=== PATIENT | female | born 1995 | race Hispanic/Latino ===

== ENCOUNTER 2018-10-06 13:30 | Outpatient (CLI) | payer BC ==
--- NOTE | 2018-10-06 16:11 | ULT ---
OB ULTRASOUND: Date: 10/06/18 HISTORY: Size and dates. FINDINGS: A single, live intrauterine gestation is seen, with measurements corresponding to an estimated gestat ional age of 22 weeks/0 days and SOL at 02/09/19. The estimated weight measures 470 gm, or 1 lb . 1 oz. measurements are as follows: BPD: 5.21 cm, 21 weeks/6 days HC: 19.56 cm, 21 weeks/6 days AC: 16.53 cm, 21 weeks/4 days FL: 3.94 cm, 22 weeks/5 days heart rate measures 165 beats/minute. JOSE measures 12.2 cm. Placenta is anteriorly located with out evidence of placenta previa. Three vessel cord, cord insertion, kidneys, bladder, stomach, four chamber heart, lateral ventr icles, cerebellum, spine, lips/nose, upper/lower extremities are visualized. No definite anomal ies are seen. IMPRESSION: Single, live intrauterine of 22 weeks estimated gestational age and SOL at 02/09/19. POS: PILY
== END 2018-10-06 13:31 | disposition home or self-care (01) ==
LOC: BICULT 13:30
PROVIDERS: ATTEND Family Medicine
DX: Z34.82 Encounter for supervision of other normal pregnancy, second trimester (principal); Z3A.22 22 weeks gestation of pregnancy
CPT/HCPCS: 76805

== ENCOUNTER 2018-11-13 10:57 | Day surgery (SDC) | payer BC ==
[2018-11-13] MEDS ORDERED: Morphine 4 MG/ML VIAL SLOW IVP PRN (11:22)
[2018-11-13] MEDS ORDERED: Ondansetron ODT 4 MG TAB PO PRN (11:24)
[2018-11-13] MEDS ORDERED: Lactated Ringer's 1,000 ML IV SCH (11:30)
[2018-11-13] MEDS ORDERED: Ondansetron PF 4 MG/2 ML Vial IVP SCH (11:30)
[2018-11-13] MEDS ORDERED: Acetaminophen 650 MG in Premix Bag 1 BAG IVPB SCH (11:30)
[2018-11-13] MEDS ORDERED: Acetaminophen 500 MG TAB PO SCH (11:30)
[2018-11-13 11:36] VITALS: BMI 39.0
--- NOTE | 2018-11-13 11:41 | PDOC.LDHP ---
Labor and Delivery H&P Chief complaint: other (Rt flank pain) HPI: 23 yo @ 27.6 presents w/ 24 hr h/o severe flank pain with radiation into rt groin and associated nausea and vomiting. Pt reports pain is persistent and waxes and wanes but never goes away completely. She reports pos movement, denies vaginal discharge, LOF, contractions, vaginal bleeding. She denies fever and denies hematuria, dysuria and foul smelling urine. ROS: Gen: Denies fever chills HEENT: Denies headache CV: Denies CP Respiratory: Denies SOB, cough Abd: Reports NV, denies diarrhea and constipation MSK: reports flank pain with radiation into groin : See HPI Current gestational age (weeks): 27 (6) Dating criteria: last menstrual period Grav: 2 Para: 1 Current complications: none Abnormal US findings: No Current medications: pre-sin vitamins Previous surgical history: none Allergies/Adverse Reactions: Allergies Allergy/AdvReac Type Severity Reaction Status Date / Time No Known Allergies Allergy Verified 11/13/18 11:30 Social history: none - Physical Exam Abnormal vital signs: Tachycardia, Normotensive, Afebrile General: resting, other (Moderately uncomfortable) Heart: RRR Lungs: CTAB Abdomen: gravid Extremeties: no edema FHT: category 1 (145 baseline w/ moderate variability) [place] contractions every: None - OB Labs Blood type: unknown RH: unknown Antibody Screen: unknown HIV: unknown RPR: unknown HEPSAg: unknown 1 hour GCT: unknown GBS: unknown - Assessment Renal colic: - Plan -: 1) Renal colic: concerning for nephrolithiasis - will start peripheral SL and IVH w/ LR 1L bolus - tylenol and morphine for pain control - renal US to assess for stone/hydro vs other etiology, check UA and consider urine culture - given afebrile and no urinary symptoms low likelihood of pyelo - zofran prn for NV - cat 1 strip, cont EFM Addendum - Attending - Attending Attestation Date/Time: 11/13/18 [id number] I personally evaluated the patient and discussed the management with Dr. Ferrera. I agree with the History, Examination, Assessment and Plan documented above. No e/o pyelonephritis or kidney stone. Feeling better after IV hydration and tylenol. D/c home with precautions.
[2018-11-13 12:21] LABS: Bilirubin Negative (Negative); Blood, Urine Negative (Negative); Clarity CLEAR (Clear); Glucose, Urine (Dipstick) Negative (Negative); Leukocyte Negative (Negative); Nitrite Negative (Negative); Protein, Urine (Dipstick) Negative (Neg-Trace); Specific Gravity, Urine 1.009 (1.002-1.036); Urobilinogen 0.2 mg/dL (0.2-1.0); pH, Urine 6.5 (5.0-9.0)
[2018-11-13 12:24] LABS: Bacteria/HPF None Seen HPF (None Seen); Hyaline Casts/LPF 4-6 HYALINE CAST LPF (0-3 Hyaline); Pathc Cast-AUWi Flag 1.74 (0-2.49); RBC/HPF None Seen HPF (0-3); Squamous Epithelial 0-3 HPF (0-3); WBC/HPF 0-3 HPF (0-3)
--- NOTE | 2018-11-13 14:22 | ULT ---
BILATERAL RENAL SONOGRAM: Date: 11/13/18 HISTORY: Right flank pain. FINDINGS: Right kidney is 13.5 cm with minimal distention of the collecting structures. Left kidney is 13.1 cm length with a normal appearance. No hydronephrosis. Incidental note of echogenic foci within the depe ndent portion of the gallbladder lumen. Urinary bladder is incompletely distended. IMPRESSION: 1. Mild right hydronephrosis of . 2. Cholelithiasis. POS: PILY
--- NOTE | 2018-11-13 14:25 | PDOC.EVN ---
Event Note - Event Note Event Note: Pt reports significant imprvement in pain with PO tylenol alone. US shows mild right hydronephrosis and normal left kidney. UA shows ketones only and no blood , leuks or nitrites. US comments on incidental cholelithiasis without gallbladder wall thickening or pericholecystic stranding. Will plan to DC to home with instructions to return if new or worsening symptoms or development of fever. DC diagnosis presumptive nephrolithiasis, pt counseled on return precautions and will take flomax if return of renal colic until passage of stone or resolution of symptoms. Counseled on importance of oral hydration.
== END 2018-11-13 14:41 | disposition home health service (06) ==
LOC: L&D/OP 10:57
PROVIDERS: ATTEND Family Medicine
DX: O26.832 Pregnancy related renal disease, second trimester (principal); N23 Unspecified renal colic; Z3A.27 27 weeks gestation of pregnancy; Z79.899 Other long term (current) drug therapy
CPT/HCPCS: 51701; 76770; 81001; 96360; 96361; 96375; 99283; A4353; J2405

== ENCOUNTER 2019-02-02 23:00 | Inpatient (IN) | payer BC ==
[2019-02-04] MEDS ORDERED: Butorphanol Tartrate 1 MG/ML VIAL SLOW IVP PRN (05:43)
[2019-02-04] MEDS ORDERED: NS w/ Oxytocin 10 units 500 ML IV SCH (05:43)
[2019-02-04] MEDS ORDERED: Ibuprofen 800 MG TAB PO PRN (05:43)
[2019-02-04] MEDS ORDERED: Diphenoxylate HCl/Atropine Tablet PO PRN (05:43)
[2019-02-04] MEDS ORDERED: Ondansetron PF 4 MG/2 ML Vial IVP PRN ×3 (05:43→21:29)
[2019-02-04] MEDS ORDERED: Carboprost 250 MCG/ML AMP IM PRN (05:43)
[2019-02-04] MEDS ORDERED: HYDROcodone/Acetaminophen 5/325 mg Tablet PO PRN (05:43)
[2019-02-04] MEDS ORDERED: Misoprostol 200 MCG TAB PR PRN (05:43)
[2019-02-04] MEDS ORDERED: Lidocaine 1% (PF) 30 ML VIAL SC PRN (05:43)
[2019-02-04] MEDS ORDERED: NS / Oxytocin 40 units/1000ml 1,000 ML IV PRN (05:43)
[2019-02-04] MEDS ORDERED: Methylergonovine 0.2 MG/ML VIAL IM PRN (05:43)
[2019-02-04 05:50] VITALS: BMI 43.0
[2019-02-04] MEDS: Lactated Ringer's 1,000 ML IV SCH ×3 (06:18→16:16)
[2019-02-04 06:57] LABS: Hemoglobin 11.2 g/dL (12.0-16.0); Mean Corpuscular HGB CONC 35.1 g/dL (32.0-36.0); Mean Corpuscular Hemoglobin 29.5 pg (27.0-31.0); Mean Corpuscular Volume 84.1 fL (78.0-98.0); Mean Platelet Volume 9.3 fL (7.4-10.4); Platelet Count 236 thou/uL (130-400); RBC Distribution Width 13.6 % (11.5-14.5); Red Blood Cell (RBC) Count 3.78 mill/uL (4.20-5.40); White Blood Cell (WBC) Count 9.6 thou/uL (4.8-10.8)
[2019-02-04] MEDS: NS w/ Oxytocin 10 units 500 ML IV SCH ×2 (07:12→19:49)
[2019-02-04 07:38] LABS: Syphilis Antibody Nonreactive (Nonreactive); Syphilis Antibody Index 0.04 S/CO (<1.00 Non-Reactive)
[2019-02-04 07:38] LABS: HBSAg Index 0.23 S/CO (0-0.99); Hep B Surf Ag Non-Reactive S/CO (NonReactive)
[2019-02-04] MEDS ORDERED: Fentanyl 4 mcg/Bup 0.1% Cadd 100 ML ONE ×2 (09:13→18:36)
[2019-02-04] MEDS ORDERED: Dexamethasone 20 MG/5 ML VIAL ONE (11:08)
[2019-02-04] MEDS ORDERED: PHENYLEPHRINE-NS 100 MCG/ML 10 ML SYRINGE ONE ×2 (11:08→20:43)
[2019-02-04] MEDS ORDERED: Metoclopramide HCl 10 MG/2 ML VIAL ONE ×2 (11:08→21:53)
[2019-02-04] MEDS ORDERED: Ondansetron PF 4 MG/2 ML Vial ONE ×2 (11:08→20:43)
[2019-02-04] MEDS ORDERED: Ketorolac Tromethamine 30 MG/ML VIAL ONE ×2 (11:08→20:44)
[2019-02-04] MEDS ORDERED: PROPOFOL 200 MG/20 ML VIAL ONE (11:08)
[2019-02-04] MEDS ORDERED: Bupivacaine PF 0.5% 30 ML VIAL ONE (11:11)
[2019-02-04] MEDS ORDERED: Lidocaine 2% MPF 10 ML AMP (For Epidural Use) ONE (11:11)
[2019-02-04] MEDS ORDERED: Bupivacaine/Epinephrine 0.25% 30 ML VIAL ONE (11:11)
[2019-02-04] MEDS ORDERED: Bupivacaine HCl 0.5%/Epinephrine 1:200,000/PF 30 ml Vial ONE (11:11)
[2019-02-04] MEDS ORDERED: diphenhydrAMINE 50 MG/ML VIAL IVP PRN ×2 (13:39→21:29)
[2019-02-04] MEDS ORDERED: Lactated Ringer's 500 ML IV PRN (13:39)
[2019-02-04] MEDS ORDERED: ePHEDrine/0.9% NaCl/PF SYRINGE 50 mg/10 ml SLOW IVP PRN (13:39)
[2019-02-04] MEDS ORDERED: Promethazine HCl 25 MG/ML VIAL IM PRN ×2 (13:39→21:29)
[2019-02-04] MEDS ORDERED: Acetaminophen 325 MG TAB PO PRN (13:39)
[2019-02-04] MEDS ORDERED: Naloxone HCl 0.4 mg/ml Vial IVP PRN ×4 (13:39→21:29)
[2019-02-04] MEDS ORDERED: Fentanyl 4 mcg/Bupivacaine 0.1% Cassette 100 ML EPIDURAL SCH (13:45)
[2019-02-04] MEDS ORDERED: Communication Order-Pharmacy FS SCH ×2 (13:45→21:30)
[2019-02-04] MEDS ORDERED: MORPHINE 5 MG/10 ML PF VIAL ONE (20:43)
[2019-02-04] MEDS ORDERED: Fentanyl 100 MCG/2 ML VIAL ONE (20:43)
[2019-02-04] MEDS ORDERED: Oxytocin 10 UNITS/ML VIAL ONE ×3 (20:44→21:29)
[2019-02-04] MEDS ORDERED: ePHEDrine/0.9% NaCl/PF SYRINGE 50 mg/10 ml ONE (20:44)
[2019-02-04] MEDS ORDERED: Carboprost 250 MCG/ML AMP ONE ×2 (21:05→21:18)
[2019-02-04] MEDS ORDERED: Methylergonovine 0.2 MG/ML VIAL ONE (21:05)
[2019-02-04] MEDS ORDERED: Ketamine 50 MG/ML (10ML VIAL) ONE (21:19)
[2019-02-04] MEDS ORDERED: Midazolam HCl 2 mg/2 ml Vial ONE (21:19)
[2019-02-04] MEDS ORDERED: PROPOFOL 20 ML ONE (21:22)
[2019-02-04] MEDS ORDERED: Meperidine HCl/PF 25 MG/ML VIAL SLOW IVP PRN (21:29)
[2019-02-04] MEDS ORDERED: Ketorolac Tromethamine 30 MG/ML VIAL IVP PRN (21:29)
[2019-02-04] MEDS ORDERED: Naloxone HCl 0.4 mg/ml Vial IV PRN (21:29)
[2019-02-04] MEDS ORDERED: Ondansetron HCl/PF 4 MG/2 ML Vial IVP PRN (21:29)
[2019-02-04] MEDS ORDERED: L&D-Morphine 4 MG/ML VIAL SLOW IVP PRN (21:29)
[2019-02-04] MEDS ORDERED: HYDROmorphone 2 MG/ML VIAL SLOW IVP PRN (21:29)
[2019-02-04] MEDS ORDERED: Promethazine HCl 25 MG SUPP PR PRN (21:29)
[2019-02-04] MEDS ORDERED: Ketorolac Tromethamine 30 MG/ML VIAL IVP SCH (21:30)
[2019-02-04] MEDS ORDERED: Dexamethasone 4 mg/ml Vial ONE (21:47)
[2019-02-04] MEDS ORDERED: Promethazine HCl 25 MG/ML VIAL ONE (22:26)
[2019-02-04] MEDS: Misoprostol 100 MCG TAB PO SCH (23:11)
[2019-02-05] MEDS ORDERED: Lactated Ringer's 1,000 ML IV SCH (01:00)
[2019-02-05] MEDS ORDERED: NS / Oxytocin 40 units/1000ml 1,000 ML IV SCH (01:00)
[2019-02-05] MEDS ORDERED: Simethicone Chewable 80 MG TAB PO PRN (01:00)
[2019-02-05] MEDS ORDERED: Bisacodyl 10 MG SUPP PR PRN (01:00)
[2019-02-05] MEDS ORDERED: diphenhydrAMINE 25 MG CAP PO PRN (01:00)
[2019-02-05] MEDS ORDERED: Promethazine HCl 25 MG/ML VIAL IM PRN (01:00)
[2019-02-05] MEDS ORDERED: Lanolin Ointment 7 GM TUBE TOP PRN (01:00)
[2019-02-05] MEDS ORDERED: Metoclopramide HCl 10 MG/2 ML VIAL IVP PRN (01:00)
[2019-02-05] MEDS ORDERED: Ondansetron PF 4 MG/2 ML Vial IVP PRN (01:00)
--- NOTE | 2019-02-05 02:59 | OP ---
DATE OF PROCEDURE: 02/04/2019 PREOPERATIVE DIAGNOSES: 1. A 39 plus week . 2. Morbid obesity. 3. Arrest of dilation. POSTOPERATIVE DIAGNOSES: 1. A 39 plus week . 2. Morbid obesity. 3. Arrest of dilation. 4. Persistent occiput posterior presentation. PROCEDURE PERFORMED: Primary low cervical transverse . OPTICAL DESIGN ENGINEER: Dr. Saucedo. DESCRIPTION OF PROCEDURE: After informed consent was obtained from the patient , she was taken to the operating room, where epidural anesthesia was readministered. She was then prepped and draped in the usual sterile fashion. A Pfannenstiel incision was created with a #10 scalpel blade and carried down to the fascia. Skin bleeders were cauterized with a Bovie. The fascia was nicked in the midline and the fascial incision was extended transversely with Alejo scissors. The superior fascial segments were grasped with Kochers and elevated and the underlying rectus muscles were dissected away, first bluntly and then sharply. This was repeated with an inferior fascial segment. The rectus muscles were divided in the midline bluntly. The peritoneum was entered bluntly. A large Riky O retractor was placed. The uterus was entered in a low transverse fashion with a clean #10 scalpel blade. After the initial score, the hysterotomy bled briskly despite pressure and suction and the myometrium was incised deliberately, but rapidly. Clear amniotic fluid was encountered. The infant was found to be in ROP presentation. vertex was delivered onto the operative field, followed by the remainder of the . No nuchal cord was encountered. The cord was clamped x2, and a vigorous infant was handed to the staff in attendance. The cord blood was obtained. The placenta was manually extracted. The uterus was exteriorized and the freed of clots and debris. It was atonic despite oxytocin infusion, thus Methergine and Hemabate x1 each were given with improvement in uterine tone. The uterus was repaired with running locking suture of 0-Vicryl in a single full-thickness layer followed by a second imbricating layer , also with 0-Vicryl. A single [id number] suture was placed on the right corner for hemostasis, which was observed. 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 Seprafilm was applied to the repaired uterine incisions. The abdomen was copiously irrigated with saline. The uterus was returned to the abdomen. Hemostasis was again observed. The peritoneum was closed with a running suture of 3-0 Vicryl. The fascia was repaired with a running suture of 3-0 PDS. Interrupted sutures of 3- 0 Vicryl were placed in the subdermal layer to reapproximate the skin, which was closed with skin isabela. Sponge and instrument counts were correct x4. She tolerated the procedure well and suffered no significant acute complications. She was taken to Recovery in stable condition, the infant to nursery in a stable condition. FINDINGS: Viable male . Apgars of 8 and 9 at one and five minutes respectively. 8 pounds 1 ounce. COMPLICATIONS: Mild uterine atony, which responded to Methergine x1, Hemabate x1 and oxytocin infusion. QBL: 693 mL. Job ID: [id number] MTDD
[2019-02-05] MEDS: Ketorolac Tromethamine 30 MG/ML VIAL IVP SCH ×3 (04:32→17:46)
[2019-02-05 06:50] LABS: Hemoglobin 10.3 g/dL (12.0-16.0); Mean Corpuscular HGB CONC 33.7 g/dL (32.0-36.0); Mean Corpuscular Hemoglobin 28.8 pg (27.0-31.0); Mean Corpuscular Volume 85.5 fL (78.0-98.0); Mean Platelet Volume 8.8 fL (7.4-10.4); Platelet Count 223 thou/uL (130-400); RBC Distribution Width 13.4 % (11.5-14.5); Red Blood Cell (RBC) Count 3.58 mill/uL (4.20-5.40); White Blood Cell (WBC) Count 15.7 thou/uL (4.8-10.8)
[2019-02-05] MEDS: Docusate Calcium (SURFAK) 240 MG CAP PO SCH ×2 (08:26→21:51)
[2019-02-05] MEDS: Prenatal Vitamin 1 TAB PO SCH (08:26)
[2019-02-05] MEDS: Ferrous Sulfate 325 MG TAB PO SCH ×2 (08:28→17:46)
[2019-02-05] MEDS ORDERED: Meperidine HCl/PF 25 MG/ML VIAL IM PRN (09:30)
[2019-02-05] MEDS ORDERED: HYDROcodone/Acetaminophen 5/325 mg Tablet PO PRN (09:30)
[2019-02-05] MEDS: HYDROcodone/Acetaminophen 5/325 mg Tablet PO PRN ×2 (14:06→20:24)
[2019-02-05] MEDS: Ibuprofen 800 MG TAB PO SCH (21:51)
[2019-02-06] MEDS: Ibuprofen 800 MG TAB PO SCH ×3 (06:16→21:49)
[2019-02-06] MEDS: Ferrous Sulfate 325 MG TAB PO SCH ×2 (08:29→18:24)
[2019-02-06] MEDS: HYDROcodone/Acetaminophen 5/325 mg Tablet PO PRN ×3 (08:49→17:47)
[2019-02-06] MEDS: Prenatal Vitamin 1 TAB PO SCH (08:50)
[2019-02-06] MEDS: Docusate Calcium (SURFAK) 240 MG CAP PO SCH ×2 (08:50→21:48)
[2019-02-07] MEDS: Ibuprofen 800 MG TAB PO SCH ×2 (06:29→14:34)
[2019-02-07] MEDS: Ferrous Sulfate 325 MG TAB PO SCH (07:49)
[2019-02-07 08:07] VITALS: BP 97/60; TEMP 98.1
[2019-02-07] MEDS: Docusate Calcium (SURFAK) 240 MG CAP PO SCH (09:29)
[2019-02-07] MEDS: Prenatal Vitamin 1 TAB PO SCH (09:29)
== END 2019-02-07 16:05 | disposition home or self-care (01) | DRG 788 ==
LOC: L&D 02-04 05:07 → 3SW 02-05 01:06
PROVIDERS: ADMIT Family Medicine; ATTEND Family Medicine
PROC: 10D00Z1 Extraction of Products of Conception, Low, Open Approach (ICD-10-PCS; principal; 2019-02-04)
PROC: 10907ZC Drainage of Amniotic Fluid, Therapeutic from Products of Conception, Via Natural or Artificial Opening (ICD-10-PCS; 2019-02-04)
PROC: 3E0P7VZ Introduction of Hormone into Female Reproductive, Via Natural or Artificial Opening (ICD-10-PCS; 2019-02-04)
PROC: 3E033VJ Introduction of Other Hormone into Peripheral Vein, Percutaneous Approach (ICD-10-PCS; 2019-02-04)
DX: O77.0 Labor and delivery complicated by meconium in amniotic fluid (principal); O99.214 Obesity complicating childbirth; Z37.0 Single live birth; Z3A.39 39 weeks gestation of pregnancy; O64.0XX0 Obstructed labor due to incomplete rotation of fetal head, not applicable or unspecified; E66.01 Morbid (severe) obesity due to excess calories; O62.0 Primary inadequate contractions; O61.0 Failed medical induction of labor; O62.2 Other uterine inertia
CPT/HCPCS: 36415; 51702; 85027; 86780; 86850; 86900; 86901; 87340; J0670; J0690; J1100; J1885; J2001; J2210; J2250; J2270; J2405; J2550; J2590; J2704; J2765; J3010; J3490; S0020

== ENCOUNTER 2019-02-18 01:16 | Emergency (ER) | payer BC ==
[2019-02-18] MEDS ORDERED: Ondansetron PF 4 MG/2 ML Vial ONE (01:46)
[2019-02-18] MEDS ORDERED: Morphine 4 MG/ML VIAL ONE (01:46)
[2019-02-18 01:48] LABS: #Basophils 0.1 thou/uL (0.0-0.2); #Eosinphils 0.2 thou/uL (0.0-0.7); #Lymphocytes 2.2 thou/uL (1.20-3.40); #Monocytes 0.6 thou/uL (0.11-0.59); #Neutrophils 4.8 thou/uL (1.40-6.50); %Basophils 0.9 % (0.0-1.0); %Eosinophils 2.7 % (0.0-10.0); %Lymphocytes 28.4 % (21.0-51.0); %Monocytes 7.2 % (0.0-10.0); %Neutrophils 60.9 % (42.0-75.0); Hemoglobin 11.8 g/dL (12.0-16.0); Mean Corpuscular HGB CONC 33.5 g/dL (32.0-36.0); Mean Corpuscular Hemoglobin 28.6 pg (27.0-31.0); Mean Corpuscular Volume 85.5 fL (78.0-98.0); Mean Platelet Volume 7.7 fL (7.4-10.4); Platelet Count 348 thou/uL (130-400); RBC Distribution Width 12.6 % (11.5-14.5); Red Blood Cell (RBC) Count 4.14 mill/uL (4.20-5.40); White Blood Cell (WBC) Count 7.8 thou/uL (4.8-10.8)
[2019-02-18 02:05] LABS: Bilirubin Negative (Negative); Blood, Urine Small (Negative); Clarity CLEAR (Clear); Glucose, Urine (Dipstick) Negative (Negative); Leukocyte Small (Negative); Nitrite Negative (Negative); Protein, Urine (Dipstick) Negative (Neg-Trace); Specific Gravity, Urine 1.014 (1.002-1.036); Urobilinogen 0.2 mg/dL (0.2-1.0); pH, Urine 6.5 (5.0-9.0)
[2019-02-18 02:08] LABS: Bacteria/HPF None Seen HPF (None Seen); Hyaline Casts/LPF 0-3 HYALINE CAST LPF (0-3 Hyaline); RBC/HPF 0-3 HPF (0-3); Squamous Epithelial 0-3 HPF (0-3)
[2019-02-18 02:10] LABS: ALT (SGPT) 17 U/L (8-55); AST (SGOT) 16 U/L (5-34); Albumin 4.5 g/dL (3.5-5.0); Alkaline Phosphatase 112 U/L (40-150); Anion Gap 13 mmol/L (10-20); BUN (Urea Nitrogen) 15 mg/dL (7.0-18.7); Bilirubin, Total 0.5 mg/dL (0.2-1.2); Calc. Creatinine Clearance 0 mL/min (70-130); Calcium 10.4 mg/dL (7.8-10.44); Carbon Dioxide 26 mmol/L (22-29); Chloride 103 mmol/L (98-107); Estimated GFR-MDRD Greater than 90; Globulin 3.6 g/dL (2.4-3.5); Glucose 101 mg/dL (70-105); Potassium 3.8 mmol/L (3.5-5.1); Protein, Total 8.1 g/dL (6.0-8.3); Sodium 138 mmol/L (136-145)
--- NOTE | 2019-02-18 07:08 | ULT ---
RIGHT UPPER QUADRANT ULTRASOUND: Date: 02/18/19 INDICATION: Intermittent right upper quadrant pain. FINDINGS: There is evidence of cholelithiasis. Gallbladder wall is normal in thickness. Common duct measures 5 mm. Streeter's sign reported as positive. No focal hepatic lesion. Incidental note of cyst formation wi thin the right kidney, approximately 1.3 cm in diameter. IMPRESSION: Moderate distention of the gallbladder with cholelithiasis. There is a positive Streeter's sign. Correl ate for clinical evidence of cholecystitis. POS: HECTOR
== END 2019-02-18 03:19 | disposition home or self-care (01) ==
LOC: ERS 01:16
DX: K80.50 Calculus of bile duct without cholangitis or cholecystitis without obstruction (principal)
CPT/HCPCS: 76705; 80053; 81003; 81015; 85025; 96361; 96374; 96375; J2270; J2405

== ENCOUNTER 2020-06-21 14:20 | Outpatient (CLI) | payer BC ==
--- NOTE | 2020-06-21 18:02 | ULT ---
OB ULTRASOUND: 06/21/20 INDICATIONS: Assess anatomy. FINDINGS: There is a single viable intrauterine . Gestational age by ultrasound is 23 weeks, 5 days. BIOMETRY: BPD: 23 week, 5 day HC: 23 week, 2 day AC: 23 week, 6 day FL: 23 week, 6 day EFW: 617 grams, 23 week, 4 day. Amniotic fluid: Adequate. JOSE recorded at 17.2 cm. heart rate: 163 beats per minute. Placenta: Anterior. Presentation: Vertex. Cervical length: 3.9 cm. ANATOMY: The intracranial contents, four chamber heart, stomach, kidneys, cord insertion, bladder, lips, nose, extremities and three vessel cord were all imaged and appear unremarkable. The spine was partially i vincent but is limited due to position. Material adnexa regions were not evaluated. IMPRESSION: 23 week, 5 day gestation by ultrasound measurement. No abnormality identified. 1. POS: AGW
== END 2020-06-21 14:21 | disposition home or self-care (01) ==
LOC: BICULT 14:20
PROVIDERS: ATTEND Family Medicine
DX: O09.892 Supervision of other high risk pregnancies, second trimester (principal); Z3A.23 23 weeks gestation of pregnancy
CPT/HCPCS: 76805

== ENCOUNTER 2020-10-05 10:18 | Outpatient (CLI) | payer BC ==
[2020-10-05 20:23] LABS: SARS-CoV-2 PCR by NAA Not Detected (NotDetected)
== END 2020-10-05 10:19 | disposition home or self-care (01) ==
LOC: LABBT 10:18
PROVIDERS: ATTEND Family Medicine
DX: Z01.812 Encounter for preprocedural laboratory examination (principal); Z20.822 Contact with and (suspected) exposure to COVID-19
CPT/HCPCS: 87635; U0003; U0005

== ENCOUNTER 2020-10-08 04:48 | Inpatient (IN) | payer BC ==
[2020-10-08] MEDS ORDERED: Lactated Ringer's 1,000 ML IV SCH (05:03)
[2020-10-08] MEDS ORDERED: Promethazine HCl 25 MG/ML VIAL IM PRN ×4 (05:03→10:36)
[2020-10-08] MEDS ORDERED: hydrALAZINE 20 MG/ML VIAL SLOW IVP PRN ×2 (05:03→10:36)
[2020-10-08] MEDS ORDERED: Ondansetron PF 4 MG/2 ML Vial IVP PRN ×3 (05:03→10:36)
[2020-10-08] MEDS ORDERED: Famotidine/PF 20 mg/2ml Vial SLOW IVP PRN (05:03)
[2020-10-08] MEDS ORDERED: Bicitra 30 ML UDCUP PO PRN (05:03)
[2020-10-08] MEDS ORDERED: CEFAZOLIN 2 GM in Premix Bag 1 BAG IVPB SCH (05:15)
[2020-10-08 05:21] VITALS: BMI 40.4
[2020-10-08 05:53] LABS: Hemoglobin 9.9 g/dL (12.0-16.0); Mean Corpuscular HGB CONC 32.6 g/dL (32.0-36.0); Mean Corpuscular Hemoglobin 24.6 pg (27.0-31.0); Mean Corpuscular Volume 75.4 fL (78.0-98.0); Mean Platelet Volume 8.7 fL (7.4-10.4); Platelet Count 309 thou/uL (130-400); Red Blood Cell (RBC) Count 4.03 mill/uL (4.20-5.40); White Blood Cell (WBC) Count 7.3 thou/uL (4.8-10.8)
[2020-10-08] MEDS ORDERED: PHENYLEPHRINE-NS 100 MCG/ML 10 ML SYRINGE ONE (06:42)
[2020-10-08] MEDS ORDERED: Morphine PF 10 MG/10 ML VIAL ONE (06:42)
[2020-10-08 07:17] LABS: Hep B Surf Ag Non-Reactive S/CO (NonReactive); Syphilis Antibody Nonreactive (Nonreactive); Syphilis Antibody Index 0.04 S/CO (<1.00 Non-Reactive)
[2020-10-08] MEDS ORDERED: Ondansetron PF 4 MG/2 ML Vial ONE (07:43)
[2020-10-08] MEDS ORDERED: Dexamethasone 4 mg/ml Vial ONE (07:43)
[2020-10-08] MEDS ORDERED: Ketorolac Tromethamine 30 MG/ML VIAL ONE (07:43)
[2020-10-08] MEDS ORDERED: Oxytocin 10 UNITS/ML VIAL ONE (07:56)
[2020-10-08] MEDS ORDERED: PROPOFOL 40 ML ONE (08:09)
[2020-10-08] MEDS ORDERED: Naloxone HCl 0.4 mg/ml Vial IVP PRN ×2 (09:42)
[2020-10-08] MEDS ORDERED: Ondansetron HCl/PF 4 MG/2 ML Vial IVP PRN (09:42)
[2020-10-08] MEDS ORDERED: Ketorolac Tromethamine 30 MG/ML VIAL IVP PRN (09:42)
[2020-10-08] MEDS ORDERED: Promethazine HCl 25 MG SUPP PR PRN (09:42)
[2020-10-08] MEDS ORDERED: Promethazine HCl 25 MG/ML VIAL SLOW IVP PRN (09:42)
[2020-10-08] MEDS ORDERED: diphenhydrAMINE 50 MG/ML VIAL IVP PRN (09:42)
[2020-10-08] MEDS ORDERED: Naloxone HCl 0.4 mg/ml Vial IV PRN (09:42)
[2020-10-08] MEDS ORDERED: Communication Order-Pharmacy FS SCH (09:45)
[2020-10-08] MEDS ORDERED: diphenhydrAMINE 25 MG CAP PO PRN (10:36)
[2020-10-08] MEDS ORDERED: Bisacodyl 10 MG SUPP PR PRN (10:36)
[2020-10-08] MEDS ORDERED: Simethicone Chewable 80 MG TAB PO PRN (10:36)
[2020-10-08] MEDS ORDERED: Lanolin Ointment 7 GM TUBE TOP PRN (10:36)
[2020-10-08] MEDS ORDERED: NS w/ Oxytocin 30 units 500 ML IVPB SCH (11:00)
[2020-10-08] MEDS ORDERED: Ketorolac Tromethamine 30 MG/ML VIAL IVP SCH (12:00)
[2020-10-08] MEDS: Ketorolac Tromethamine 30 MG/ML VIAL IVP SCH ×2 (15:32→20:28)
[2020-10-08] MEDS: Ferrous Sulfate 325 MG TAB PO SCH (20:28)
[2020-10-08] MEDS: Docusate Calcium (SURFAK) 240 MG CAP PO SCH (20:28)
[2020-10-08] MEDS ORDERED: FLU VACC QS2020-21(6MOS UP)/PF 60 MCG/0.5 ML SYRINGE IM ONE (21:00)
[2020-10-08] MEDS ORDERED: Meperidine HCl/PF 25 MG/ML VIAL IM PRN (21:45)
[2020-10-09] MEDS: Ketorolac Tromethamine 30 MG/ML VIAL IVP SCH ×2 (02:37→09:50)
[2020-10-09 05:57] LABS: Hemoglobin 9.5 g/dL (12.0-16.0); Mean Corpuscular HGB CONC 32.6 g/dL (32.0-36.0); Mean Corpuscular Hemoglobin 24.7 pg (27.0-31.0); Mean Corpuscular Volume 75.9 fL (78.0-98.0); Mean Platelet Volume 8.8 fL (7.4-10.4); Platelet Count 302 thou/uL (130-400); RBC Distribution Width 13.8 % (11.5-14.5); Red Blood Cell (RBC) Count 3.86 mill/uL (4.20-5.40); White Blood Cell (WBC) Count 10.7 thou/uL (4.8-10.8)
[2020-10-09] MEDS ORDERED: Adacel (T-DAP) 0.5 ML SYRINGE IM ONE (09:00)
[2020-10-09] MEDS: Docusate Calcium (SURFAK) 240 MG CAP PO SCH ×2 (09:47→21:35)
[2020-10-09] MEDS: Prenatal Vitamin 1 TAB PO SCH (09:47)
[2020-10-09] MEDS: Ferrous Sulfate 325 MG TAB PO SCH ×2 (09:47→21:36)
[2020-10-09] MEDS ORDERED: Sodium Chloride 0.9% 10 ML ONE (09:49)
[2020-10-09] MEDS: Ibuprofen 800 MG TAB PO SCH (18:08)
[2020-10-09] MEDS: HYDROcodone/Acetaminophen 5/325 mg Tablet PO PRN (18:10)
[2020-10-10] MEDS: HYDROcodone/Acetaminophen 5/325 mg Tablet PO PRN ×2 (00:01→04:36)
[2020-10-10] MEDS: Prenatal Vitamin 1 TAB PO SCH (08:22)
[2020-10-10] MEDS: Ferrous Sulfate 325 MG TAB PO SCH ×2 (08:22→21:51)
[2020-10-10] MEDS: Ibuprofen 800 MG TAB PO SCH ×4 (08:23→21:51)
[2020-10-10] MEDS: Docusate Calcium (SURFAK) 240 MG CAP PO SCH ×2 (08:23→21:51)
[2020-10-11] MEDS: Ibuprofen 800 MG TAB PO SCH (05:09)
[2020-10-11] MEDS: HYDROcodone/Acetaminophen 5/325 mg Tablet PO PRN (05:15)
[2020-10-11 08:12] VITALS: BP 126/70; TEMP 97.8
[2020-10-11] MEDS: Prenatal Vitamin 1 TAB PO SCH (08:17)
[2020-10-11] MEDS: Ferrous Sulfate 325 MG TAB PO SCH (08:17)
[2020-10-11] MEDS: Docusate Calcium (SURFAK) 240 MG CAP PO SCH (08:17)
== END 2020-10-11 10:30 | disposition home or self-care (01) | DRG 788 ==
LOC: L&D 04:48 → 3SW 11:09
PROVIDERS: ADMIT Family Medicine; ATTEND Family Medicine
PROC: 10D00Z1 Extraction of Products of Conception, Low, Open Approach (ICD-10-PCS; principal; 2020-10-08)
DX: O34.211 Maternal care for low transverse scar from previous cesarean delivery (principal); E66.9 Obesity, unspecified; O99.214 Obesity complicating childbirth; Z3A.39 39 weeks gestation of pregnancy; Z37.0 Single live birth
CPT/HCPCS: 36415; 51702; 85027; 86780; 86850; 86900; 86901; 87340; 87635; J0690; J1100; J1885; J2270; J2405; J2704; Q0163; U0003; U0005

== ENCOUNTER 2022-02-19 23:12 | Emergency (ER) | payer BC ==
[2022-02-19] MEDS ORDERED: Morphine 4 MG/ML VIAL ONE (23:51)
[2022-02-19] MEDS ORDERED: Ondansetron PF 4 MG/2 ML Vial ONE (23:52)
[2022-02-20 00:01] LABS: #Basophils 0.1 thou/uL (0.0-0.2); #Eosinphils 0.2 thou/uL (0.0-0.7); #Lymphocytes 2.7 thou/uL (1.20-3.40); #Monocytes 0.6 thou/uL (0.11-0.59); #Neutrophils 5.5 thou/uL (1.40-6.50); %Eosinophils 2.6 % (0.0-10.0); %Lymphocytes 29.5 % (21.0-51.0); %Monocytes 6.8 % (0.0-10.0); %Neutrophils 60.1 % (42.0-75.0); Mean Corpuscular Hemoglobin 30.4 pg (27.0-31.0); Mean Corpuscular Volume 86.9 fL (78.0-98.0); Mean Platelet Volume 7.3 fL (7.4-10.4); Platelet Count 298 thou/uL (130-400); RBC Distribution Width 11.8 % (11.5-14.5); Red Blood Cell (RBC) Count 4.26 mill/uL (4.20-5.40); White Blood Cell (WBC) Count 9.1 thou/uL (4.8-10.8)
[2022-02-20 00:15] LABS: BHCG - Serum Negative (NEGATIVE); Pregs Control Background? CLEAR/WHITE (CLR/WHITE); Pregs Control Bar Appear? YES (CONTROL BAR)
[2022-02-20 00:21] LABS: Bilirubin Negative (Negative); Blood, Urine Trace (Negative); Clarity Clear (Clear); Glucose, Urine (Dipstick) Normal (Negative); Ketone, Urine Negative (Negative); Leukocyte Negative Leu/uL (Negative); Nitrite Negative (Negative); Protein, Urine (Dipstick) Negative (Neg-Trace); RBC/HPF 0-3 HPF (0-3); Specific Gravity, Urine 1.016 (1.002-1.036); Urobilinogen Normal mg/dL (Less than 2)
[2022-02-20 00:22] LABS: ALT (SGPT) 34 U/L (8-55); AST (SGOT) 33 U/L (5-34); Albumin 4.6 g/dL (3.5-5.0); Alkaline Phosphatase 106 U/L (40-110); Anion Gap 10 mmol/L (10-20); BUN (Urea Nitrogen) 8 mg/dL (7.0-18.7); Bilirubin, Total 0.8 mg/dL (0.2-1.2); Calc. Creatinine Clearance 0 mL/min (70-130); Calcium 9.3 mg/dL (7.8-10.44); Carbon Dioxide 28 mmol/L (22-29); Chloride 103 mmol/L (98-107); Globulin 3.6 g/dL (2.4-3.5); Glucose 102 mg/dL (70-105); Lipase 16 U/L (8-78); Potassium 3.8 mmol/L (3.5-5.1); Protein, Total 8.2 g/dL (6.0-8.3); Sodium 137 mmol/L (136-145)
[2022-02-20 00:23] LABS: Bacteria/HPF 1+ HPF (None Seen)
== END 2022-02-20 02:17 | disposition home or self-care (01) ==
LOC: ERS 23:12
DX: K80.20 Calculus of gallbladder without cholecystitis without obstruction (principal)
CPT/HCPCS: 76705; 80053; 81003; 81015; 83690; 84703; 85025; 87086; 96361; 96374; 96375; J2270; J2405

== ENCOUNTER 2022-03-10 13:13 | Outpatient (CLI) | payer BC ==
[2022-03-10 14:45] LABS: #Eosinphils 0.2 10x3/uL (0.0-0.5); #Monocytes 0.7 10x3/uL (0.0-1.1); %Basophils 0.4 % (0.0-2.0); %Lymphocytes 23.5 % (18.0-47.0); %Monocytes 8.5 % (0.0-10.0); %Neutrophils 65.3 % (40.0-75.0); Hemoglobin 12.4 g/dL (12.0-15.5); Mean Corpuscular HGB CONC 33.3 g/dL (32.0-36.0); Mean Corpuscular Hemoglobin 28.5 pg (27.0-33.0); Mean Corpuscular Volume 85.5 fl (81.6-98.3); Mean Platelet Volume 10.5 fl (7.4-10.4); Platelet Count 298 10x3/uL (150-450); RBC Distribution Width 12.7 % (11.5-14.5); Red Blood Cell (RBC) Count 4.35 10x6/uL (3.90-5.03); White Blood Cell (WBC) Count 7.7 10x3/uL (3.5-10.5)
[2022-03-10 15:11] LABS: BHCG - Serum Negative (NEGATIVE); Pregs Control Background? CLEAR/WHITE (CLR/WHITE); Pregs Control Bar Appear? YES (CONTROL BAR)
[2022-03-10 15:16] LABS: ALT (SGPT) 23 U/L (8-55); AST (SGOT) 17 U/L (5-34); Albumin 4.6 g/dL (3.5-5.0); Alkaline Phosphatase 92 U/L (40-110); Anion Gap 12 mmol/L (10-20); BUN (Urea Nitrogen) 8 mg/dL (7.0-18.7); Bilirubin, Total 1.2 mg/dL (0.2-1.2); Calc. Creatinine Clearance 0 mL/min (70-130); Calcium 9.3 mg/dL (7.8-10.44); Carbon Dioxide 26 mmol/L (22-29); Chloride 105 mmol/L (98-107); Globulin 3.1 g/dL (2.4-3.5); Glucose 78 mg/dL (70-105); Potassium 4.3 mmol/L (3.5-5.1); Protein, Total 7.7 g/dL (6.0-8.3); Sodium 139 mmol/L (136-145)
== END 2022-03-10 13:14 | disposition home or self-care (01) ==
LOC: LABBT 13:13
PROVIDERS: ATTEND Specialist
DX: Z01.812 Encounter for preprocedural laboratory examination (principal); K80.20 Calculus of gallbladder without cholecystitis without obstruction; Z20.822 Contact with and (suspected) exposure to COVID-19
CPT/HCPCS: 80053; 84703; 85025; U0003; U0005

== ENCOUNTER 2022-03-13 08:18 | Day surgery (SDC) | payer BC ==
[2022-03-11 11:49] VITALS: BMI 44.0
[2022-03-13] MEDS ORDERED: Acetaminophen 500 MG TAB ONE (08:38)
[2022-03-13] MEDS ORDERED: Ketorolac Tromethamine 30 MG/ML VIAL ONE (08:38)
[2022-03-13] MEDS ORDERED: Lidocaine 1% w/Epinephrine 1:100K 20 ML VIAL ONE (08:44)
[2022-03-13] MEDS ORDERED: Bupivacaine 0.25% HCL 30 ML VIAL ONE (08:44)
[2022-03-13] MEDS ORDERED: Midazolam HCl 2 mg/2 ml Vial ONE (09:20)
[2022-03-13] MEDS ORDERED: fentaNYL Citrate/PF 100 MCG/2 ML SYRINGE ONE (09:26)
[2022-03-13] MEDS ORDERED: HYDROmorphone 2 MG/ML VIAL ONE (09:26)
[2022-03-13] MEDS ORDERED: CEFAZOLIN 2 GM VIAL ONE (09:30)
[2022-03-13] MEDS ORDERED: Sodium Chloride 0.9% 100 ML ONE (09:30)
[2022-03-13] MEDS ORDERED: Metoclopramide HCl 10 MG/2 ML VIAL ONE (09:38)
[2022-03-13] MEDS ORDERED: Rocuronium Bromide 10 MG/ML (10ML VIAL) ONE (09:38)
[2022-03-13] MEDS ORDERED: PHENYLEPHRINE-NS 100 MCG/ML 10 ML SYRINGE ONE (09:38)
[2022-03-13] MEDS ORDERED: Ondansetron PF 4 MG/2 ML Vial ONE (09:38)
[2022-03-13] MEDS ORDERED: Lidocaine 1% PF 5 ML VIAL ONE (09:38)
[2022-03-13] MEDS ORDERED: Dexamethasone 20 MG/5 ML VIAL ONE (09:38)
[2022-03-13] MEDS ORDERED: diphenhydrAMINE 50 MG/ML VIAL ONE (09:38)
[2022-03-13] MEDS ORDERED: Glycopyrrolate 0.2 MG/ML 5 ML SYRINGE ONE (09:38)
[2022-03-13] MEDS ORDERED: PROPOFOL 200 MG/20 ML VIAL ONE (09:38)
[2022-03-13] MEDS ORDERED: HYDROcodone/Acetaminophen 5/325 mg Tablet ONE (12:19)
== END 2022-03-13 13:30 ==
LOC: SDC 08:18
PROVIDERS: ATTEND Specialist
PROC: 0FT44ZZ Resection of Gallbladder, Percutaneous Endoscopic Approach (ICD-10-PCS; principal; 2022-03-13)
DX: K80.10 Calculus of gallbladder with chronic cholecystitis without obstruction (principal); K83.8 Other specified diseases of biliary tract; E66.01 Morbid (severe) obesity due to excess calories; Z68.41 Body mass index [BMI] 40.0-44.9, adult
CPT/HCPCS: 88304; C1713; J0690; J1100; J1170; J1200; J1885; J2250; J2405; J2704; J2765; J3490; S0020

== ENCOUNTER 2022-12-05 10:54 | Day surgery (SDC) | payer BC ==
[2022-12-03 14:36] VITALS: BMI 45.9
[2022-12-05] MEDS ORDERED: FENTANYL 50 MCG/ML 1 ML VIAL ONE (13:32)
[2022-12-05] MEDS ORDERED: Midazolam HCl 2 mg/2 ml Vial ONE (13:32)
[2022-12-05] MEDS ORDERED: HYDROmorphone 0.5 MG/0.5 ML SYRINGE ONE (13:32)
[2022-12-05] MEDS ORDERED: Sodium Chloride 0.9% 100 ML ONE (13:51)
[2022-12-05] MEDS ORDERED: CEFAZOLIN 2 GM VIAL ONE (13:51)
[2022-12-05] MEDS ORDERED: Neomycin-Polymyxin 1 ML AMP ONE (13:55)
[2022-12-05] MEDS ORDERED: PROPOFOL 200 MG/20 ML VIAL ONE (13:58)
[2022-12-05] MEDS ORDERED: Lidocaine 1% PF 5 ML VIAL ONE (13:58)
[2022-12-05] MEDS ORDERED: Dexamethasone 20 MG/5 ML VIAL ONE (13:58)
[2022-12-05] MEDS ORDERED: Ondansetron PF 4 MG/2 ML Vial ONE (13:58)
[2022-12-05] MEDS ORDERED: Betamet Acet/Betamet Na Ph 30 MG/5 ML VIAL ONE (14:34)
[2022-12-05] MEDS ORDERED: Ketorolac Tromethamine 30 MG/ML VIAL ONE (15:11)
[2022-12-05] MEDS ORDERED: Scopolamine 1.5 mg/72 hour Patch ONE (17:36)
[2022-12-05] MEDS ORDERED: Ondansetron ODT 4 MG TAB ONE (17:36)
[2022-12-05] MEDS ORDERED: HYDROcodone/Acetaminophen 5/325 mg Tablet ONE ×2 (18:16)
== END 2022-12-05 18:31 | disposition home or self-care (01) ==
LOC: SDC 10:54
PROVIDERS: ATTEND Orthopaedic Surgery Hand Surgery
PROC: 01Q40ZZ Repair Ulnar Nerve, Open Approach (ICD-10-PCS; principal; 2022-12-05)
PROC: 0JBK0ZZ Excision of Left Hand Subcutaneous Tissue and Fascia, Open Approach (ICD-10-PCS; principal; 2022-12-05)
DX: M79.89 Other specified soft tissue disorders (principal); Z79.899 Other long term (current) drug therapy
CPT/HCPCS: 88305; J0702; J1100; J1170; J1885; J2250; J2405; J2704; J3010; J3490; Q0162